=== PATIENT | male | born 1950 | race Asian ===

== ENCOUNTER 2024-03-21 17:06 | Emergency (ER) | payer OTHER, MEDICARE ==
[2024-03-21 17:53] VITALS: BP 125/70; PULSE 53; RESP 16; TEMP 97.7; BMI 24.7
[2024-03-21] MEDS ORDERED: AZITHROMYCIN 500 MG TABLET ONE (18:27)
== END 2024-03-21 17:47 | disposition home or self-care (01) ==
LOC: FER 17:06
DX: U07.1 COVID-19 (principal); R05.9 Cough, unspecified; J06.9 Acute upper respiratory infection, unspecified; R09.81 Nasal congestion; R09.82 Postnasal drip; J02.9 Acute pharyngitis, unspecified; R63.0 Anorexia
CPT/HCPCS: 0241U-QW; 87651; 99283-25